=== PATIENT | female | born 1940 | race Caucasian/White ===

== ENCOUNTER 2016-07-14 05:19 | Emergency (ER) | payer MEDICARE, OTHER ==
[~2016-07-14] VITALS: Ht 157.5 cm; Wt 68.4 kg
[2016-07-14] VITALS (7 sets, daily range): BP systolic 121–148; BP diastolic 50–62; PULSE 89–102; RESP 16–18; TEMP 99.7–101.5; O2SAT 93–95
[2016-07-14] MEDS ORDERED: ACETAMINOPHEN 325 MG TAB PO ONE (05:45)
[2016-07-14] MEDS ORDERED: cefTRIAXone INJ 1,000 MG in SODIUM CHLORIDE 0.9% INJ 100 ML IV ONE (05:45)
--- NOTE | 2016-07-14 05:55 | PD ---
HPI Chief Complaint: fever Time Seen by Provider: 05:41 Travel History International Travel<30 days: No Contact w/Intl Traveler<30days: No Traveled to known affect area: No History of Present Illness HPI 75-year-old female presents to the emergency department for complaint of fever chills cough congestion myalgias and arthralgias since Tuesday morning 06/14/16. Patient recently returned from [place] where reportedly there was a school closure secondary to large population in the community with influenza. Patient states she did not have the flu vaccine for this season. Patient complains of subjective fever chills sore throat cough congestion yellow-green phlegm production nausea without vomiting no abdominal pain no diarrhea no dysuria frequency or urgency, but does note myalgias and arthralgias without skin rash or joint pain or swelling. Patient has been using multiple [id number] cold preparation medications without symptomatic relief. Patient has history of irregular heartbeat for which she is prescribed multaq and warfarin. PFSH Past Medical History Narrative Medical Bronchitis hypothyroidism atrial fibrillation Social History Tobacco Use: No Allergies-Medications (Allergen,Severity, Reaction): Coded Allergies: Codeine (Verified Allergy, Severe, 07/14/16) Reported Meds & Prescriptions Reported Meds & Active Scripts Active Magic Mouthwash Adult Liq (Multi-Ingredient Mouthwash/Gargle) 120 Ml Susp 10 Ml SWISH-SWAL ACHS Each 5mL contains: Nystatin 200,000units, Diphenhydramine 4.25mg, Viscous Lidocaine 10mg, Em syrup 0.8 mL Ventolin Hfa 18 GM Inh (Albuterol Sulfate) 90 Mcg/Act Aer 1 Puff INH Q4H PRN Tamiflu (Oseltamivir Phosphate) 75 Mg Cap 75 Mg PO BID 5 Days Reported [employer] Allergy (Diphenhydramine HCl) 12.5 Mg/5 Ml Liq 5 Ml PO Q6HR PRN Advil (Ibuprofen) 200 Mg Tab 400 Mg PO Q8H PRN Multaq (Dronedarone) 400 Mg Tab 400 Mg PO BID Coumadin (Warfarin) 7.5 Mg Tab 7.5 Mg PO DAILY Review of Systems Except as stated in HPI: all other systems reviewed are Neg General / Constitutional: Positive: Fever, Chills HENT: Positive: Sore Throat, Congestion Cardiovascular: Positive: Chest Pain or Discomfort Respiratory: Positive: Cough Gastrointestinal: Positive: Nausea, No: Vomiting, Diarrhea, Abdominal Pain Genitourinary: No: Dysuria Musculoskeletal: Positive: Myalgias, Arthralgias, No: Edema Skin: No Rash Neurologic: Positive: Weakness Psychiatric: No: Anxiety, Depression Hematologic/Lymphatic: No: Easy Bruising Physical Exam Narrative GENERAL: Well-developed well-nourished female in no acute distress no respiratory distress SKIN: Warm and dry. HEAD: Normocephalic. EYES: No scleral icterus. No injection or drainage. ENT: Mucous membranes moist airway is patent no exudative change. NECK: Supple, trachea midline. No JVD or lymphadenopathy. CARDIOVASCULAR: Regular rate and rhythm without murmurs, gallops, or rubs. RESPIRATORY: Breath sounds equal bilaterally. No accessory muscle use. GASTROINTESTINAL: Abdomen soft, non-tender, nondistended. MUSCULOSKELETAL: No cyanosis, or edema. BACK: Nontender without obvious deformity. No CVA tenderness. Data Data Last Documented VS Vital Signs Date Time Temp Pulse Resp B/P Pulse Ox O2 Delivery O2 Flow Rate FiO2 07/14/16 11:12 96 17 122/62 95 21 07/14/16 09:50 Room Air 07/14/16 07:40 99.7 Orders ^ Saline Lock (07/14/16 05:41) Influenzae A/B Antigen (07/14/16 05:41) Group A Rapid Strep Screen (07/14/16 05:41) Blood Culture (07/14/16 05:41) Lactic Acid (07/14/16 05:41) Prothrombin Time / Inr (Pt) (07/14/16 05:41) Urinalysis - C+S If Indicated (07/14/16 05:41) Ceftriaxone Inj (Rocephin Inj) (07/14/16 05:45) Acetaminophen (Tylenol) (07/14/16 05:45) Chest, Single Ap (07/14/16 ) Strep Culture (Group A) (07/14/16 05:48) Complete Blood Count With Diff (07/14/16 06:32) Oseltamivir (Tamiflu) (07/14/16 06:45) Basic Metabolic Panel (Bmp) (07/14/16 06:54) Ct Pulmonary Angiogram (07/14/16 ) Sodium Chlorid 0.9% 500 Ml Inj (Ns 500 M (07/14/16 07:45) Albuterol-Ipratropium Neb (Duoneb Neb) (07/14/16 07:45) Albuterol-Ipratropium Neb (Duoneb Neb) (07/14/16 08:00) Iohexol 350 Inj (Omnipaque 350 Inj) (07/14/16 08:33) Labs Laboratory Tests Test 07/14/16 07/14/16 07/14/16 05:45 05:50 06:00 Urine Color YELLOW Urine Turbidity CLEAR Urine pH 5.5 Urine Specific [place] 1.022 Urine Protein 30 mg/dL Urine Glucose (UA) NEG mg/dL Urine Ketones TRACE mg/dL Urine Occult Blood MOD Urine Nitrite NEG Urine Bilirubin NEG Urine Leukocyte Esterase NEG Urine RBC 0-3 /hpf Urine WBC 0-2 /hpf Urine Squamous Epithelial 0-5 /hpf Cells Urine Amorphous Sediment FEW Urine Bacteria OCC /hpf Urine Mucus FEW /lpf Microscopic Urinalysis Comment CULT NOT INDICATED White Blood Count 6.9 TH/MM3 Red Blood Count 4.03 MIL/MM3 Hemoglobin 11.0 GM/DL Hematocrit 33.1 % Mean Corpuscular Volume 82.1 FL Mean Corpuscular Hemoglobin 27.2 PG Mean Corpuscular Hemoglobin 33.1 % Concent Red Cell Distribution Width 13.9 % Platelet Count 140 TH/MM3 Mean Platelet Volume 9.2 FL Neutrophils (%) (Auto) 82.4 % Lymphocytes (%) (Auto) 11.1 % Monocytes (%) (Auto) 6.1 % Eosinophils (%) (Auto) 0.1 % Basophils (%) (Auto) 0.3 % Neutrophils # (Auto) 5.6 TH/MM3 Lymphocytes # (Auto) 0.8 TH/MM3 Monocytes # (Auto) 0.4 TH/MM3 Eosinophils # (Auto) 0.0 TH/MM3 Basophils # (Auto) 0.0 TH/MM3 CBC Comment DIFF FINAL Differential Comment Prothrombin Time 17.1 SEC Prothromb Time International 1.5 RATIO Ratio Sodium Level 136 MEQ/L Potassium Level 3.4 MEQ/L Chloride Level 100 MEQ/L Carbon Dioxide Level 26.7 MEQ/L Anion Gap 9 MEQ/L Blood Urea Nitrogen 13 MG/DL Creatinine 0.77 MG/DL Estimat Glomerular Filtration 73 ML/MIN Rate Random Glucose 97 MG/DL Calcium Level 7.9 MG/DL Lactic Acid Level 1.2 mmol/L MDM Medical Decision Making Medical Screen Exam Complete: Yes Emergency Medical Condition: Yes Medical Record Reviewed: Yes Interpretation(s) influenza A ag: positive RSA: negative INR: 1.5, subtherapeutic lactic acid: 1.2, not elevated Last Impressions Chest X-Ray 07/14/16 0000 Signed Impressions: Service Date/Time: Thursday, July 14, 2016 05:52 - CONCLUSION: No acute cardiopulmonary process. Sriram Garduno MD Vital Signs Date Time Temp Pulse Resp B/P Pulse Ox O2 Delivery O2 Flow Rate FiO2 07/14/16 06:08 97 18 96 Room Air 07/14/16 05:47 101.5 07/14/16 05:43 100.4 97 18 148/56 95 CBC & BMP Diagram 07/14/16 05:50 Differential Diagnosis Febrile illness, influenza, viral syndrome, bronchitis, pneumonia, UTI Narrative Course IV access obtained specimen and administer IV fluids IV Rocephin and specimens collected for influenza as well as rapid strep test along with blood cultures and acetaminophen Chest x-ray reveals no lobar infiltrate Influenza A antigen is positive; patient informed of influenza results given first dose of Tamiflu Patient stable for outpatient management At 7:30 while waiting for one last lab test patient was identified to have decrease in her O2 saturations on room air 89-92% which is down from her presenting room air O2 saturation 95-96% area patient has recently traveled from [place] to this area. No prior history of reactive airways disease or COPD or emphysema. Patient is a nonsmoker. Well obtain a CT pulmonary angiogram and disposition after the study will be determined in the interim patient also received Kimberlee kapadiara 1. Care signed over to Dr. Blank for follow-up of CT and reassessment of patient disposition. Diagnosis Primary Impression: Influenza A Referrals: Primary Care Physician call for appointment Patient Instructions: General Instructions Additional Instructions: Increase fluid hydration Take acetaminophen every 4 hours as needed for fever 100.4F or greater Complete course of Tamiflu as prescribed Return to the emergency for for any concerns or change in condition Follow-up with primary care provider call office for follow-up appointment Continue to take her chronic medications as chronically prescribed Med/Other Pt SpecificInfo: Prescription(s) given Scripts Kkoiwvvz-Hiuliazopwohayf-Vxwtpmcsx Liq (Magic Mouthwash Adult Liq)120 Ml Susp10 Ml SWISH-SWAL ACHS #120 ML Ref 0 Each 5mL contains: Nystatin 200,000units, Diphenhydramine 4.25mg, Viscous Lidocaine 10mg, Em syrup 0.8 mL Prov:Car Blank MD 07/14/16 Albuterol 18 GM Inh (Ventolin Hfa 18 GM Inh)90 Mcg/Act Aer1 Puff INH Q4H PRN ( SHORTNESS OF BREATH) #1 INHALER Ref 0 Prov:Car Blank MD 07/14/16 Oseltamivir (Tamiflu)75 Mg Cap75 Mg PO BID 5 Days Ref 0 Prov:Talisha Leonardo MD 07/14/16 Talisha Leonardo MD Jul 14, 2016 05:55
[2016-07-14 06:02] LABS: GLUCOSE,URINE NEG (NEG); KETONE, URINE TRACE mg/dL (NEG); NITRITE,URINE NEG (NEG); PH, URINE 5.5 (5.0-8.5)
[2016-07-14] MEDS ORDERED: [UNRECOGNIZED DRUG - CODE] PO (06:13)
[2016-07-14] MEDS ORDERED: IBUP-988 PO (06:13)
[2016-07-14] MEDS ORDERED: MULT400T PO (06:13)
[2016-07-14] MEDS ORDERED: COUM7.5T PO (06:13)
--- NOTE | 2016-07-14 06:25 | RADHPO ---
EXAM DATE/TIME: 07/14/2016 05:52 [facility] COMPARISON: No previous studies available for comparison. INDICATIONS : Shortness of breath. MEDICAL HISTORY : None. SURGICAL HISTORY : None. ENCOUNTER: Initial ACUITY: 2 days PAIN SCORE: 3/10 LOCATION: Bilateral chest FINDINGS: A single view of the chest demonstrates the lungs to be symmetrically aerated without evidence of mas s, infiltrate or effusion. The cardiomediastinal contours are unremarkable. Osseous structures are intact with some degenerative spurring of the dorsal spine. CONCLUSION: No acute cardiopulmonary process. Sriram Garduno MD on July 14, 2016 at 6:23 Board Certified Radiologist. This report was verified electronically.
[2016-07-14 06:35] LABS: INTERNATIONAL NORMALIZED RATIO 1.5 RATIO; PROTHROMBIN TIME - PATIENT 17.1 SEC (9.8-11.6)
[2016-07-14 06:38] LABS: BLOOD, URINE MOD (NEG); URINE COLOR YELLOW (YELLW/STRAW)
[2016-07-14 06:39] LABS: MUCUS URINE FEW /lpf (OCC); SQUAMOUS EPITHELIAL CELL URINE 0-5 /hpf (0-5)
[2016-07-14 06:40] LABS: RBC, URINE 0-3 /hpf (0-3)
[2016-07-14] MEDS ORDERED: OSEL75 PO (06:40)
[2016-07-14 06:41] LABS: BACTERIA, URINE OCC /hpf; COMMENT (UR) CULT NOT INDICATED; CULTURE IF INDICATED CULT NOT INDICATED; WBC, URINE 0-2 /hpf (0-5)
[2016-07-14 06:41] LABS: AUTOMATED NEUTROPHIL # 5.6 TH/MM3 (1.8-7.7); BASOPHIL % 0.3 % (0.0-2.0); EOSINOPHIL % 0.1 % (0.0-4.0); HEMATOCRIT 33.1 % (35.0-46.0); HEMO FLAGS DIFF FINAL; LYMPH % 11.1 % (9.0-44.0); LYMPHOCYTE # 0.8 TH/MM3 (1.0-4.8); MEAN CELL VOLUME 82.1 FL (80.0-100.0); MEAN CORPUSCULAR HEMOGLOBIN 27.2 PG (27.0-34.0); MEAN CORPUSCULAR HGB CONC 33.1 % (32.0-36.0); MONO % 6.1 % (0.0-8.0); NEUT % 82.4 % (16.0-70.0); PLATELET COUNT 140 TH/MM3 (150-450); RED BLOOD COUNT 4.03 MIL/MM3 (4.00-5.30); RED CELL DISTRIBUTION WIDTH 13.9 % (11.6-17.2); WHITE BLOOD COUNT 6.9 TH/MM3 (4.0-11.0)
[2016-07-14] MEDS ORDERED: OSELTAMIVIR PHOSPHATE 75 MG CAP PO ONE (06:45)
[2016-07-14 07:27] LABS: POTASSIUM 3.4 MEQ/L (3.5-5.1)
[2016-07-14 07:30] LABS: BICARBONATE 26.7 MEQ/L (21.0-32.0)
[2016-07-14] MEDS ORDERED: SODIUM CHLORID 0.9% 500 ML INJ 500 ML IV ONE (07:45)
[2016-07-14] MEDS ORDERED: RESP: ALBUTEROL 2.5 MG/IPRATROPIUM 0.5 MG NEB (SCH) NEB ONE ×2 (07:45→08:00)
[2016-07-14] MEDS ORDERED: IOHEXOL 350 MG/ML 10 ML VIAL (for RAD DIAG) IV ONE (08:33)
--- NOTE | 2016-07-14 09:10 | RADHPO ---
EXAM DATE/TIME: 07/14/2016 08:21 [facility] COMPARISON: CHEST SINGLE AP, July 14, 2016, 5:52. INDICATIONS : Cough for two daysand short of breath. Evaluate for pulmonary embolism. IV CONTRAST: 65 cc Omnipaque 350 (iohexol) IV RADIATION DOSE: 14.40 CTDIvol (mGy) MEDICAL HISTORY : Cardiovascular disease. Anticoagulant therapy. SURGICAL HISTORY : Hysterectomy. ENCOUNTER: Initial ACUITY: 2 days PAIN SCALE: 0/10 LOCATION: chest TECHNIQUE: Volumetric scanning of the chest was performed using a pulmonary embolism protocol MIP images were re constructed. Using automated exposure control and adjustment of the mA and/or kV according to patien t size, radiation dose was kept as low as reasonably achievable to obtain optimal diagnostic quality images. FINDINGS: PULMONARY ARTERIES: No filling defects are seen in the pulmonary arteries through the segmental level. LUNGS: Mild bibasilar atelectasis. There is mild thickening of the interlobular septa. PLEURAE: There is no pleural thickening or pleural effusion. MEDIASTINUM: There is good visualization of the great vessels of the middle mediastinum. No evidence of mediastin al or hilar adenopathy/mass. MUSCULOSKELETAL: Within normal limits for patient age. MISCELLANEOUS: The visualized upper abdominal organs demonstrate no acute abnormality. Liver appears fatty. There is a small hiatal hernia. CONCLUSION: 1. No pulmonary embolus. 2. Trace bibasilar atelectasis and trace pulmonary edema/vascular congestion. 3. Fatty liver. 4. Small hiatal hernia. Wilbur Dimas MD on July 14, 2016 at 9:07 Board Certified Radiologist. This report was verified electronically.
--- NOTE | 2016-07-14 10:23 | PD ---
Data Data Last Documented VS Vital Signs Date Time Temp Pulse Resp B/P Pulse Ox O2 Delivery O2 Flow Rate FiO2 07/14/16 09:50 102 16 123/50 95 Room Air 07/14/16 07:40 99.7 Orders ^ Saline Lock (07/14/16 05:41) Influenzae A/B Antigen (07/14/16 05:41) Group A Rapid Strep Screen (07/14/16 05:41) Blood Culture (07/14/16 05:41) Lactic Acid (07/14/16 05:41) Prothrombin Time / Inr (Pt) (07/14/16 05:41) Urinalysis - C+S If Indicated (07/14/16 05:41) Ceftriaxone Inj (Rocephin Inj) (07/14/16 05:45) Acetaminophen (Tylenol) (07/14/16 05:45) Chest, Single Ap (07/14/16 ) Strep Culture (Group A) (07/14/16 05:48) Complete Blood Count With Diff (07/14/16 06:32) Oseltamivir (Tamiflu) (07/14/16 06:45) Basic Metabolic Panel (Bmp) (07/14/16 06:54) Ct Pulmonary Angiogram (07/14/16 ) Sodium Chlorid 0.9% 500 Ml Inj (Ns 500 M (07/14/16 07:45) Albuterol-Ipratropium Neb (Duoneb Neb) (07/14/16 07:45) Albuterol-Ipratropium Neb (Duoneb Neb) (07/14/16 08:00) Iohexol 350 Inj (Omnipaque 350 Inj) (07/14/16 08:33) Labs Laboratory Tests Test 07/14/16 07/14/16 07/14/16 05:45 05:50 06:00 Urine Color YELLOW Urine Turbidity CLEAR Urine pH 5.5 Urine Specific [place] 1.022 Urine Protein 30 mg/dL Urine Glucose (UA) NEG mg/dL Urine Ketones TRACE mg/dL Urine Occult Blood MOD Urine Nitrite NEG Urine Bilirubin NEG Urine Leukocyte Esterase NEG Urine RBC 0-3 /hpf Urine WBC 0-2 /hpf Urine Squamous Epithelial 0-5 /hpf Cells Urine Amorphous Sediment FEW Urine Bacteria OCC /hpf Urine Mucus FEW /lpf Microscopic Urinalysis Comment CULT NOT INDICATED White Blood Count 6.9 TH/MM3 Red Blood Count 4.03 MIL/MM3 Hemoglobin 11.0 GM/DL Hematocrit 33.1 % Mean Corpuscular Volume 82.1 FL Mean Corpuscular Hemoglobin 27.2 PG Mean Corpuscular Hemoglobin 33.1 % Concent Red Cell Distribution Width 13.9 % Platelet Count 140 TH/MM3 Mean Platelet Volume 9.2 FL Neutrophils (%) (Auto) 82.4 % Lymphocytes (%) (Auto) 11.1 % Monocytes (%) (Auto) 6.1 % Eosinophils (%) (Auto) 0.1 % Basophils (%) (Auto) 0.3 % Neutrophils # (Auto) 5.6 TH/MM3 Lymphocytes # (Auto) 0.8 TH/MM3 Monocytes # (Auto) 0.4 TH/MM3 Eosinophils # (Auto) 0.0 TH/MM3 Basophils # (Auto) 0.0 TH/MM3 CBC Comment DIFF FINAL Differential Comment Prothrombin Time 17.1 SEC Prothromb Time International 1.5 RATIO Ratio Sodium Level 136 MEQ/L Potassium Level 3.4 MEQ/L Chloride Level 100 MEQ/L Carbon Dioxide Level 26.7 MEQ/L Anion Gap 9 MEQ/L Blood Urea Nitrogen 13 MG/DL Creatinine 0.77 MG/DL Estimat Glomerular Filtration 73 ML/MIN Rate Random Glucose 97 MG/DL Calcium Level 7.9 MG/DL Lactic Acid Level 1.2 mmol/L MDM Supervised Visit with JANIE: No Narrative Course This case is checked out to me by Dr. Leonardo at 7 AM. I have reviewed the entirety of the workup with the patient. She has been diagnosed with influenza a and this does match her symptom presentation with congestion and cough and fever and aches. I gave her 2 nebulizer treatments because she had some transient low saturations. I reviewed her CTA which is negative for PE. Saturations are running 95-96% on room air after nebulizers. I wrote her prescription for albuterol inhaler to use as needed. We discussed supportive care measures. She has some throat irritation I wrote her some Magic mouthwash for symptom relief. She is stable I don't feel needs hospitalization for her flu. If she worsens she will return. So her low saturations were transient and I'm not able to replicate come now. She is to call her family physician today for follow-up. Diagnosis Primary Impression: Shortness of breath Additional Impression: Influenza A Referrals: Primary Care Physician call for appointment Patient Instructions: General Instructions, Acetaminophen (By mouth), Influenza (ED) Departure Forms: Tests/Procedures Additional Instruction: Call your primary physician today for follow-up Use albuterol inhaler as needed Scripts Oseltamivir (Tamiflu)75 Mg Cap75 Mg PO BID 5 Days Ref 0 Prov:Talisha Leonardo MD 07/14/16 Disposition: 01 DISCHARGE HOME Condition: Stable Car Blank MD Jul 14, 2016 10:23
[2016-07-14] MEDS ORDERED: MAGICADU2 SWISH-SWAL (11:05)
[2016-07-14] MEDS ORDERED: VENTAER INH (11:05)
== END 2016-07-14 11:14 | disposition home or self-care (01) ==
LOC: PHED 05:19
DX: J09.X2 Influenza due to identified novel influenza A virus with other respiratory manifestations (principal); R06.02 Shortness of breath; I48.91 Unspecified atrial fibrillation; E03.9 Hypothyroidism, unspecified; Z79.01 Long term (current) use of anticoagulants
CPT/HCPCS: 71010; 71275; 80048; 81001; 83605; 85025; 85610; 87040; 87081; 87804; 87880; 94640; 94664; 96361; 96365; 99284; J0696; J7040; Q9967